=== PATIENT | male | born 1990 | race Caucasian/White ===

== ENCOUNTER → 2021-01-21 10:09 | Outpatient (CLI) | payer BC, SELFPAY ==
--- NOTE | 2021-01-21 10:18 | XR_ITS ---
PROCEDURE: XR ABDOMEN MIN 2V CLINICAL INDICATION: SWALLOWED FB COMPARISON: No exams were available for comparison FINDINGS: No radiopaque foreign body apparent. Nonspecific bowel gas pattern. No acute bony anomalies or abnormal calcifications. IMPRESSION: No acute findings. Dictated by: Albert Ruffin MD 01/21/2021 15:51 Albert Ruffin MD in [facility] 01/21/2021 15:51
== END ==
PROVIDERS: PCP Family Medicine; Visit Provider Family Medicine
DX: T18.9XXD Foreign body of alimentary tract, part unspecified, subsequent encounter (principal)
CPT/HCPCS: 74019